=== PATIENT | male | born 1955 | race Caucasian/White ===

== ENCOUNTER 2017-01-27 08:40 | Day surgery (SDC) | payer OTHER ==
--- NOTE | ~2017-01-27 | EGD ---
EGD REPORT [facility] [address] [place] [address] NAME: PRESTON BARNEY : 55 STATUS : REG [facility]#: [id number] AGE: 61 ADM/REG DATE : 01/27/17 MR#: [id number] REPORT SERV DATE: 01/27/17 DICTATED BY: RUIZ PA DATE: 01/27/17 REPORT STATUS : Draft TRANSCRIBED BY: [facility] DATE: 01/27/17 Endoscopy Center Patient Name: Preston Barney Date of : 1955 Attending MD: RUIZ PA MD Procedure Date No Time: 01/27/2017 Procedure: Colonoscopy Indications: High risk colon cancer surveillance: Personal history of colonic polyps Referring MD: Kendell Blanco Medicines: Propofol per Anesthesia Complications: No immediate complications. Procedure: Pre-Anesthesia Assessment: - ASA Grade Assessment: III - A patient with severe systemic disease. After I obtained informed consent, the scope was passed under direct vision. Throughout the procedure, the patient's blood pressure, pulse, and oxygen saturations were monitored continuously. The [facility] H190L [id number] was introduced through the anus and advanced to 5 cm into the ileum. The colonoscopy was performed without difficulty. The patient tolerated the procedure well. The quality of the bowel preparation was adequate. Scope withdrawal time was 8 minutes. Findings: The terminal ileum appeared normal. There was evidence of a prior end-to-side colo-colonic anastomosis in the sigmoid colon. This was patent. This was characterized by healthy appearing mucosa. There is no endoscopic evidence of polyps in the entire colon. The retroflexed view of the distal rectum and anal verge was normal and showed no anal or rectal abnormalities. Impression: - The examined portion of the ileum was normal. - Patent end-to-side colo-colonic anastomosis. Recommendation: - The patient will be observed post-procedure, until all discharge criteria are met. - Return to previous diet today. - Continue present medications. - The findings and recommendations were discussed with the patient and their family. - After the procedure, if you experience any pain in abdomen or chest,shortness of breath,fever,chills,blood EGD REPORT [address] [address] NAME: PRESTON BARNEY : 55 STATUS : REG [facility] PAT#: [id number] AGE: 61 ADM/REG DATE : 01/27/17 MR#: [id number] REPORT SERV DATE: 01/27/17 DICTATED BY: RUIZ PA DATE: 01/27/17 REPORT STATUS : Draft TRANSCRIBED BY: [employer] DATE: 01/27/17 in stool,rectal bleeding,vomiting of any material,nausea,black stools or weakness or dizziness, GO TO THE EMERGENCY IMMEDIATELY!!!!!!!!! Procedure Code(s): --- Professional --- 20230, Colonoscopy, flexible, proximal to splenic flexure; diagnostic, with or without collection of specimen(s) by brushing or washing, with or without colon decompression (separate procedure) Diagnosis Code(s): --- Professional --- Z98.0, Intestinal bypass and anastomosis status Z86.010, Personal history of colonic polyps CPT copyright 2013 [employer]. All rights reserved. The codes documented in this report are preliminary and upon custom dressmaker review may be revised to meet current compliance requirements. Ruiz Pa MD RUIZ PA MD 01/27/2017 10:57 AM This report has been signed electronically. Number of Addenda: 1 Note Initiated On: 01/27/2017 10:14 AM Scope Withdrawal Time 0 hours 11 minutes 17 seconds Addendum Number: 1 Addendum Date: 01/27/2017 11:11 AM The patient has not had a sigmoid resection or surgery. it was an appendectomy Ruiz Pa MD RUIZ PA MD 01/27/2017 11:12 AM This report has been signed electronically. [address], [address] [address]
--- NOTE | ~2017-01-27 | EGD ---
EGD REPORT [facility] [address]. [address] NAME: PRESTON BARNEY : 55 STATUS : REG [facility]#: [id number] AGE: 61 ADM/REG DATE : 01/27/17 MR#: [id number] REPORT SERV DATE: 01/27/17 DICTATED BY: RUIZ PA DATE: 01/27/17 REPORT STATUS : Draft TRANSCRIBED BY: [facility] DATE: 01/27/17 Endoscopy Center Patient Name: Preston Barney Date of : 1955 Attending MD: RUIZ PA MD Procedure Date No Time: 01/27/2017 Procedure: Colonoscopy Indications: High risk colon cancer surveillance: Personal history of colonic polyps Referring MD: Kendell Blanco Medicines: Propofol per Anesthesia Complications: No immediate complications. Procedure: Pre-Anesthesia Assessment: - ASA Grade Assessment: III - A patient with severe systemic disease. After I obtained informed consent, the scope was passed under direct vision. Throughout the procedure, the patient's blood pressure, pulse, and oxygen saturations were monitored continuously. The [facility] H190L [id number] was introduced through the anus and advanced to 5 cm into the ileum. The colonoscopy was performed without difficulty. The patient tolerated the procedure well. The quality of the bowel preparation was adequate. Scope withdrawal time was 8 minutes. Findings: The terminal ileum appeared normal. There was evidence of a prior end-to-side colo-colonic anastomosis in the sigmoid colon. This was patent. This was characterized by healthy appearing mucosa. There is no endoscopic evidence of polyps in the entire colon. The retroflexed view of the distal rectum and anal verge was normal and showed no anal or rectal abnormalities. Impression: - The examined portion of the ileum was normal. - Patent end-to-side colo-colonic anastomosis. Recommendation: - The patient will be observed post-procedure, until all discharge criteria are met. - Return to previous diet today. - Continue present medications. - The findings and recommendations were discussed with the patient and their family. - After the procedure, if you experience any pain in abdomen or chest,shortness of breath,fever,chills,blood EGD REPORT [address] [address] NAME: PRESTON BARNEY : 55 STATUS : REG [facility] PAT#: [id number] AGE: 61 ADM/REG DATE : 01/27/17 MR#: [id number] REPORT SERV DATE: 01/27/17 DICTATED BY: RUIZ PA DATE: 01/27/17 REPORT STATUS : Draft TRANSCRIBED BY: [employer] DATE: 01/27/17 in stool,rectal bleeding,vomiting of any material,nausea,black stools or weakness or dizziness, GO TO THE EMERGENCY IMMEDIATELY!!!!!!!!! Procedure Code(s): --- Professional --- 59159, Colonoscopy, flexible, proximal to splenic flexure; diagnostic, with or without collection of specimen(s) by brushing or washing, with or without colon decompression (separate procedure) Diagnosis Code(s): --- Professional --- Z98.0, Intestinal bypass and anastomosis status Z86.010, Personal history of colonic polyps CPT copyright 2013 [employer]. All rights reserved. The codes documented in this report are preliminary and upon utility bagger review may be revised to meet current compliance requirements. Ruiz Pa MD RUIZ PA MD 01/27/2017 10:57 AM This report has been signed electronically. Number of Addenda: 0 Note Initiated On: 01/27/2017 10:14 AM Scope Withdrawal Time 0 hours 11 minutes 17 seconds [address] [address]
[~2017-01-27 08:40] MED LIST: ASAB; ASAB PO; BENICAR HCT1 TA2; BENICAR40 PO; CIALIS5 MG PO; CINNAMON PLUS1 EACH PO; CO Q-10200 MG PO; COREG12 PO; CYMBALTA30 PO; FISH-EPA1000 MG; KLOR-CON 1010 MEQ; KLOR-CON M2020 MEQ PO; LIPITOR80 MG PO; MAG-DELAY PO; METPAKSF PO; MULTIPLE VIT PO; NIASPAN500 PO; PLAVIX PO; SPIRO25 PO; SUPER B COMP; VITC500 PO
== END 2017-01-27 23:59 | disposition home or self-care (01) ==
LOC: DMU 08:40
PROVIDERS: Internal Medicine Gastroenterology
PROC: 0DJD8ZZ Inspection of Lower Intestinal Tract, Via Natural or Artificial Opening Endoscopic (ICD-10-PCS; principal; 2017-01-27 10:00)
DX: Z09 Encounter for follow-up examination after completed treatment for conditions other than malignant neoplasm (principal); I10 Essential (primary) hypertension; I25.10 Atherosclerotic heart disease of native coronary artery without angina pectoris; I25.2 Old myocardial infarction; G47.33 Obstructive sleep apnea (adult) (pediatric); Z95.5 Presence of coronary angioplasty implant and graft; Z86.010 Personal history of colon polyps; Z98.0 Intestinal bypass and anastomosis status